=== PATIENT | male | born 1975 | race Caucasian/White ===

== ENCOUNTER 2018-09-27 04:54 | Inpatient (IN) | payer BC, OTHER ==
[~2018-09-27] VITALS: Ht 193 cm; Wt 109.4 kg
[2018-09-27] MEDS ORDERED: FENTANYL PF 100 MCG/2ML ONE (04:57)
[2018-09-27] MEDS ORDERED: HEPARIN 1,000 UNITS/ML, 10ML ONE ×2 (04:57→05:10)
[2018-09-27] MEDS ORDERED: BIVALIRUDIN 250 MG ONE (04:57)
[2018-09-27] MEDS ORDERED: MIDAZOLAM 1 MG/ML, 5ML ONE (04:57)
[2018-09-27] MEDS ORDERED: TICAGRELOR 90 MG TABLET ONE (04:57)
[2018-09-27] MEDS ORDERED: VERAPAMIL 2.5 MG/ML, 2ML ONE (04:57)
[2018-09-27] MEDS ORDERED: LIDOCAINE 1%, 20ML ONE (04:57)
[2018-09-27] MEDS ORDERED: ATOR10TA9 PO (05:03)
[2018-09-27] MEDS ORDERED: METO25TA35 PO (05:03)
[2018-09-27] MEDS ORDERED: ASPI-515 PO (05:03)
[2018-09-27] MEDS ORDERED: CLOPIDOGREL 300 MG TABLET ONE ×2 (05:10→05:43)
--- NOTE | 2018-09-27 05:10 | NUR ---
PT TRANSPORTED TO TE[facility]IST[facility] WITH [facility].
[2018-09-27 05:22] LABS: BASOPHILS # (AUTO) 0.12 x10^3/uL (0-0.1); BASOPHILS % (AUTO) 1 % (0-1); EOSINOPHILS # (AUTO) 0.04 x10^3/uL (0-0.4); EOSINOPHILS % (AUTO) 0 % (1-7); LYMPHOCYTES # (AUTO) 0.86 x10^3/uL (1-3.4); LYMPHOCYTES % (AUTO) 9 % (22-44); MD NO; MEAN CORPUSCULAR HGB CONC 34.3 g/dL (33.2-36.2); MEAN CORPUSCULAR VOLUME 87.3 fL (81-97); MEAN PLATELET VOLUME 9.7 fL (7.4-10.4); MONOCYTES # (AUTO) 0.48 x10^3/uL (0.2-0.8); MONOCYTES % (AUTO) 5 % (2-9); NEUTROPHILS # (AUTO) 7.88 x10^3/uL (1.8-6.8); NEUTROPHILS % (AUTO) 84 % (42-75); PLATELET COUNT 211 x10^3/uL (130-400); RED CELL DISTRIBUTION WIDTH 13.6 % (9.4-14.8)
[2018-09-27 05:35] LABS: INTERNATIONAL NORMALIZED RATIO 1.01 (0.93-1.1); PROTHROMBIN TIME 10.6 Seconds (9.6-11.5)
[2018-09-27 05:41] LABS: TROPONIN I 0.138 ng/mL (0.000-0.045)
[2018-09-27] MEDS ORDERED: SODIUM CHLORIDE 0.9% 1,000 ML IV SCH (07:00)
[2018-09-27 08:51] LABS: CHOL/HDL RATIO 3.8; LDL/HDL RATIO 1.9 (0.5-3.0)
[2018-09-27] MEDS: CLOPIDOGREL 75 MG TABLET PO SCH (08:51)
[2018-09-27] MEDS: ATORVASTATIN 80 MG TABLET PO SCH (19:56)
[2018-09-28 04:40] LABS: ANION GAP 3 mmol/L (5-15); CALCIUM 7.9 mg/dL (8.5-10.1); CHLORIDE 109 mmol/L (98-107); CREATININE 0.76 mg/dL (0.7-1.3)
[2018-09-28] MEDS: ASPIRIN 81 MG TABLET EC PO SCH (05:48)
[2018-09-28] MEDS: CLOPIDOGREL 75 MG TABLET PO SCH (07:43)
[2018-09-28] MEDS: METOPROLOL TARTRATE 25 MG TABLET PO SCH ×2 (08:35→17:49)
[2018-09-28 10:44] VITALS: BP 128/78
[2018-09-28 12:11] VITALS: BP 118/76
[2018-09-28 17:50] VITALS: BP 115/78
[2018-09-28 18:44] VITALS: BP 120/77
[2018-09-28] MEDS: ATORVASTATIN 80 MG TABLET PO SCH (20:09)
[2018-09-29 00:50] VITALS: BP 104/67
[2018-09-29] MEDS: METOPROLOL TARTRATE 25 MG TABLET PO SCH (04:57)
[2018-09-29] MEDS: ASPIRIN 81 MG TABLET EC PO SCH (04:57)
[2018-09-29 07:30] VITALS: BP 106/69
[2018-09-29] MEDS: CLOPIDOGREL 75 MG TABLET PO SCH (07:54)
[2018-09-29] MEDS ORDERED: CLOP75TA PO (08:43)
[2018-09-29] MEDS ORDERED: ATOR-2 PO (08:43)
[2018-09-29] MEDS ORDERED: NITR0.4T28 SL (08:43)
== END 2018-09-29 10:00 | disposition home or self-care (01) | DRG 247 ==
LOC: ED 05:12 → EDIP 05:29 → CCU 05:59 → 5SO 09-28 10:28 → DCLOUNGE 09-29 09:46
PROVIDERS: ADMIT Internal Medicine Interventional Cardiology; ATTEND Internal Medicine Interventional Cardiology
PROC: 4A023N7 Measurement of Cardiac Sampling and Pressure, Left Heart, Percutaneous Approach (ICD-10-PCS; principal; 2018-09-27)
PROC: 027034Z Dilation of Coronary Artery, One Artery with Drug-eluting Intraluminal Device, Percutaneous Approach (ICD-10-PCS; 2018-09-27)
PROC: B2111ZZ Fluoroscopy of Multiple Coronary Arteries using Low Osmolar Contrast (ICD-10-PCS; 2018-09-27)
DX: I21.19 ST elevation (STEMI) myocardial infarction involving other coronary artery of inferior wall (principal); I47.2 Ventricular tachycardia; E78.5 Hyperlipidemia, unspecified; I10 Essential (primary) hypertension; I25.10 Atherosclerotic heart disease of native coronary artery without angina pectoris; I49.3 Ventricular premature depolarization; Z82.49 Family history of ischemic heart disease and other diseases of the circulatory system; Z87.891 Personal history of nicotine dependence
CPT/HCPCS: 36415; 71045; 80047; 80048; 80061; 83735; 84484; 85025; 85347; 85610; 85730; 87081; 93005; 93306; 93458; 99156; 99157; C1769; C1894; G0378; J0583; J1644; J2250; J3010; J3490; C1725; C1874; C1887; Q9967